=== PATIENT | female | born 1950 | race Caucasian/White ===

== ENCOUNTER 2018-01-27 09:45 | Outpatient (CLI) | payer MEDICARE ==
--- NOTE | 2018-01-27 11:17 | MMO ---
BILATERAL MAMMOGRAMS: DATE: 01/27/18 HISTORY: Screening mammography. COMPARISON: Multiple exams back to 11/19/11. FINDINGS: Heterogeneously dense fibroglandular tissue. Benign-appearing calcifications. No dominant mass or suresh picious calcifications. The study was evaluated with the assistance of computer-aided detection. IMPRESSION: BIRADS 1: Negative Suggest routine follow-up. POS: [facility]
== END 2018-01-27 09:46 | disposition home or self-care (01) ==
LOC: SCSMAMMO 09:45
PROVIDERS: ATTEND Family Medicine
DX: Z12.31 Encounter for screening mammogram for malignant neoplasm of breast (principal)
CPT/HCPCS: 77067